=== PATIENT | male | born 1950 | race Caucasian/White ===

== ENCOUNTER → 2016-10-07 | Outpatient (CLI) | payer MEDICARE ==
--- NOTE | 2016-10-07 16:34 | XCELERA REPORT ---
[address] [address] Lower Extremity Venous Evaluation Name: BORIS PRINCE Age: 66 yrs Gender: Male : 1950 Patient Status: Outpatient Patient Location: Study Date: 10/07/2016 03:49 PM Procedure: Color flow and duplex imaging bilaterally of the veins of the lower extremities as well as the Common Femoral veins. Reason For Study: BLE SWELLING Ordering Physician: MARTHA JIMENEZ Performed By: Agus Pabon Right Sided Venous Evaluation Reflux noted at the Popliteal vein. Otherwise normal vessel filling wall to wall, compression and augmentation as well as Colour flow down to the infrageniculate veins. Left Sided Venous Evaluation Normal vessel filling wall to wall, compression and augmentation as well as Colour flow down to the infrageniculate veins. Critical Findings Called [phone] at 1640. Interpretation Summary No duplex evidence of DVT or obstruction in the bilateral lower extremities. Reflux limited to the right Popliteal vein. : MARTHA JIMENEZ > Fuentes Brown
== END ==
LOC: SP 15:34
PROVIDERS: ATTEND Urology
DX: M79.89 Other specified soft tissue disorders (principal)
CPT/HCPCS: 93970

== ENCOUNTER → 2017-04-09 | Outpatient (CLI) | payer MEDICARE ==
--- NOTE | 2017-04-09 12:37 | RADIOLOGY REPORT (SQ) ---
EXAM DESCRIPTION: CT CHEST WITH COMPLETED DATE/TIME: 04/09/2017 9:54 am REASON FOR STUDY: BLADDER CANCER C67.9 MALIGNANT NEOPLASM OF BLADDER, UNSPECIFIED COMPARISON: Two-view chest 05/24/2013 TECHNIQUE: CT scan of the chest performed using helical scanning technique with dynamic intravenous contrast injection. Images reviewed with lung, soft tissue and bone windows. Reconstructed coronal and sagittal MPR images reviewed. All images stored on PACS. All CT scanners at this facility use dose modulation, iterative reconstruction, and/or weight based d osing when appropriate to reduce radiation dose to as low as reasonably achievable (ALARA). [facility]: Dose Right [facility]: CareDose [facility]: Dose Right [facility]: Teradose 4D [facility]: [employer] CONTRAST TYPE AND DOSE: contrast/concentration: Isovue 370.00 mg/ml; Total Contrast Delivered: 73.8 ml; Total Saline Delivered: 20.0 ml RENAL FUNCTION: Creatinine 1.1 RADIATION DOSE: Up-to-date CT equipment and radiation dose reduction techniques were employed. CTDIv ol: 7.6 mGy. DLP: 314 mGy-cm. . LIMITATIONS: None. FINDINGS: LUNGS AND PLEURA: Advanced changes of obstructive lung disease are present in the upper lo bes bilaterally. No worrisome nodules for metastatic disease given history of bladder cancer. No pleural effusion. N o pneumothorax. HILAR AND MEDIASTINAL STRUCTURES: No identified masses or abnormal nodes. HEART AND VASCULAR STRUCTURES: No aneurysm or dissection. No central pulmonary emboli. No pericardi al effusion. Heavy coronary artery calcification. HARDWARE: None in the chest. UPPER ABDOMEN: No significant findings. Limited exam. THYROID AND OTHER SOFT TISSUES: No masses. No adenopathy. BONES: No significant finding. OTHER: No other significant finding. IMPRESSION: Obstructive lung disease. No CT evidence of metastatic disease to the chest given a history of bladder cancer TECHNICAL DOCUMENTATION: JOB ID: [id number] Quality ID # 436: Final reports with documentation of one or more dose reduction techniques (e.g., Au tomated exposure control, adjustment of the mA and/or kV according to patient size, use of iterative reconstruction technique) 2010 [employer]- All Rights Reserved
== END ==
LOC: RAD 08:54
PROVIDERS: ATTEND Internal Medicine
DX: C67.9 Malignant neoplasm of bladder, unspecified (principal); C61 Malignant neoplasm of prostate
CPT/HCPCS: 71260; 82565

== ENCOUNTER → 2017-07-14 | Outpatient (CLI) | payer MEDICARE ==
--- NOTE | 2017-07-14 13:09 | RADIOLOGY REPORT (SQ) ---
EXAM DESCRIPTION: CHEST PA/LAT COMPLETED DATE/TIME: 07/14/2017 1:01 pm REASON FOR STUDY: C67.9 MALIGNANT NEOPLASM OF BLADDER, UNSPECIFIED C61 MALIGNANT NEOPLASM OF COMPARISON: Two-view chest 05/24/2013 CT chest 04/09/2017 EXAM PARAMETERS: NUMBER OF VIEWS: two views TECHNIQUE: Digital Frontal and Lateral radiographic views of the chest acquired. RADIATION DOSE: NA LIMITATIONS: none FINDINGS: LUNGS AND PLEURA: Upper lobes are hyperlucent from obstructive disease. No acute infiltrates. No pleural effusion or pneumothorax. MEDIASTINUM AND HILAR STRUCTURES: No masses or contour abnormalities. HEART AND VASCULAR STRUCTURES: Heart normal size. No evidence for failure. BONES: No acute findings. HARDWARE: Old sternotomy and CABG OTHER: No other significant finding. IMPRESSION: Obstructive lung disease. Old sternotomy and CABG No acute findings TECHNICAL DOCUMENTATION: JOB ID: [id number] [employer]- All Rights Reserved
--- NOTE | 2017-07-14 14:13 | RADIOLOGY REPORT (SQ) ---
EXAM DESCRIPTION: CT ABD/PELVIS WITH IV ONLY COMPLETED DATE/TIME: 07/14/2017 1:20 pm REASON FOR STUDY: C67.9 MALIGNANT NEOPLASM OF BLADDER, UNSPECIFIED C67.9 MALIGNANT NEOPLASM OF BLAD LYNDA, UNSPECIFIED C61 MALIGNANT NEOPLASM OF PROSTATE COMPARISON: Reports from PET-CT [facility] 10/29/[address] abdomen 03/05/2017. TECHNIQUE: CT scan of the abdomen and pelvis performed using helical scanning technique with dynamic intravenous contrast injection. No oral contrast. Images reviewed with lung, soft tissue, and bone windows. Reconstructed coronal and sagittal MPR images reviewed. Delayed images for evaluation of the urinary system also acquired. All images stored on PACS. All CT scanners at this facility use dose modulation, iterative reconstruction, and/or weight based d osing when appropriate to reduce radiation dose to as low as reasonably achievable (ALARA). [facility]: Dose Right [facility]: CareDose [facility]: Dose Right [facility]: Teradose 4D [facility]: [employer] CONTRAST TYPE AND DOSE: contrast/concentration: Isovue 370.00 mg/ml; Total Contrast Delivered: 95.0 ml; Total Saline Delivered: 71.0 ml RENAL FUNCTION: Creatinine 1.3 RADIATION DOSE: CT Rad equipment meets quality standard of care and radiation dose reduction techniq ues were employed. CTDIvol: 9.5 - 11.2 mGy. DLP: 990 mGy-cm.. LIMITATIONS: None. FINDINGS: LOWER CHEST: No basilar pulmonary nodules. Heavy coronary calcification. LIVER: Normal size. No masses. No dilated ducts. SPLEEN: Normal size. No focal lesions. PANCREAS: No masses. No significant calcifications. No adjacent inflammation or peripancreatic fluid collections. Pancreatic duct not dilated. GALLBLADDER: No identified stones by CT criteria. No inflammatory changes to suggest cholecystitis. ADRENAL GLANDS: No significant masses or asymmetry. RIGHT KIDNEY AND URETER: No solid mass or evidence of urinary obstruction. Minimal distention of the ureter, which is patent to the level of a diverting urostomy. LEFT KIDNEY AND URETER: No solid mass or evidence of urinary obstruction. Ureter patent to the level of diverting urostomy. AORTA AND VESSELS: Infrarenal aneurysm measures 4.3 cm transverse dimension. Major arterial branches are patent. No venous clot detected. RETROPERITONEUM: No retroperitoneal adenopathy, hemorrhage or masses. BOWEL AND PERITONEAL CAVITY: No masses or inflammatory changes. No free fluid or peritoneal masses. APPENDIX: Normal. PELVIS: Status post cystectomy. No pelvic fluid or mass detected. No suggestion of pelvic adenopath y. ABDOMINAL WALL: Right abdominal urostomy. No hernia or suspicious mass. BONES: No significant or acute findings. OTHER: No other significant finding. IMPRESSION: 1. No acute or suspicious abdominopelvic abnormality. Postoperative changes status pos t cystectomy with urinary diversion. 2. Infrarenal abdominal aortic aneurysm. Grossly stable compar ed to prior imaging. TECHNICAL DOCUMENTATION: JOB ID: [id number] Quality ID # 436: Final reports with documentation of one or more dose reduction techniques (e.g., Au tomated exposure control, adjustment of the mA and/or kV according to patient size, use of iterative reconstruction technique) 2010 [employer]- All Rights Reserved
== END ==
LOC: RAD 13:22
PROVIDERS: ATTEND Internal Medicine Hematology & Oncology
DX: C67.9 Malignant neoplasm of bladder, unspecified (principal); C61 Malignant neoplasm of prostate
CPT/HCPCS: 71046; 74177; 82565

== ENCOUNTER 2017-11-02 08:48 | Day surgery (SDC) | payer MEDICARE ==
--- NOTE | 2017-10-26 09:59 | EKG REPORT ---
SEVERITY:- OTHERWISE NORMAL ECG - SINUS RHYTHM LOW VOLTAGE IN FRONTAL LEADS : Confirmed by: Toya Harmon 26-Oct-2017 09:58:36
[2017-10-26 10:09] LABS: APPEARANCE,URINE SLIGHTLY-CLOUDY; BILIRUBIN,URINE NEGATIVE (NEGATIVE); COLOR,URINE YELLOW; GLUCOSE, URINE NEGATIVE (NEGATIVE); KETONES,URINE NEGATIVE (NEGATIVE); LEUKOCYTE ESTERASE,URINE SMALL (NEGATIVE); NITRITE,URINE POSITIVE (NEGATIVE); PROTEIN,URINE NEGATIVE (NEGATIVE); URINE SPECIFIC GRAVITY 1.013; UROBILINOGEN,URINE NEGATIVE mg/dL (<2.0)
[2017-10-26 10:25] LABS: ABSOLUTE BASOPHILS # (AUTO) 0.1 10^3/uL (0.0-0.2); ABSOLUTE EOSINOPHILS # (AUTO) 0.2 10^3/uL (0.0-0.6); ABSOLUTE LYMPHOCYTES (AUTO) 1.7 10^3/uL (0.5-4.7); ABSOLUTE MONOCYTES (AUTO) 0.7 10^3/uL (0.1-1.4); ABSOLUTE NEUT (AUTO) 3.9 10^3/uL (1.7-8.2); BASOPHILS % (AUTO) 0.9 % (0-2); EOSINOPHILS % (AUTO) 3.5 % (0-6); HEMATOCRIT 42.7 % (37.9-51.0); HEMOGLOBIN 14.1 g/dL (13.5-17.0); LYMPHOCYTES % (AUTO) 26.3 % (13-45); MEAN CORPUSCULAR HEMOGLOBIN 29.2 pg (27.0-33.4); MEAN CORPUSCULAR VOLUME 89 fl (80-97); MONOCYTES % (AUTO) 10.7 % (3-13); PLATELET COUNT 248 10^3/uL (150-450); RED BLOOD COUNT 4.83 10^6/uL (4.35-5.55); RED CELL DISTRIBUTION WIDTH 13.7 % (11.5-14.0); SEGMENTED NEUTROPHILS % (AUTO) 58.6 % (42-78); TOTAL CELLS COUNTED % (AUTO) 100 %; WHITE BLOOD COUNT 6.6 10^3/uL (4.0-10.5)
[2017-10-26 10:52] LABS: ANION GAP 12 (5-19); BLOOD UREA NITROGEN 21 mg/dL (7-20); CALCIUM 10.5 mg/dL (8.4-10.2); CARBON DIOXIDE 28 mmol/L (22-30); CHLORIDE 108 mmol/L (98-107); GLUCOSE 98 mg/dL (75-110); POTASSIUM 5.5 mmol/L (3.6-5.0)
[~2017-11-02 08:48] MED LIST: ACETAMINOPHEN 100 ML IV ONE; CEFAZOLIN SODIUM 2 GM in NORMAL SALINE 100 ML IV PRN; DEXAMETHASONE SOD PHOSPHATE INJ 4 MG/1 ML VIAL ONE; FENTANYL CITRATE INJ/PF 100 MCG/2 ML AMPUL ONE; LACTATED RINGERS 1000 ML IV PRN; LIDOCAINE 2% INJ-PF (20 MG/ML) 10 ML AMPUL ONE; MIDAZOLAM 2 MG/2 ML INJ ONE; ONDANSETRON HCL INJ/PF 4 MG/2 ML SDV ONE; PROPOFOL INJ 200 MG/20 ML VIAL IV ONE
[2017-11-02] MEDS ORDERED: BUPIVACAINE HCL 0.5 % INJ/PF 30 ML SDV ONE (10:30)
[2017-11-02] MEDS ORDERED: MORPHINE SULFATE 10 MG/ML INJ IV PRN ×2 (12:12→14:06)
[2017-11-02] MEDS ORDERED: FENTANYL CITRATE INJ/PF 100 MCG/2 ML AMPUL IV PRN ×3 (12:12)
[2017-11-02] MEDS ORDERED: MEPERIDINE HCL/PF INJ 25 MG/1 ML DISP.SYRIN IV PRN (12:12)
[2017-11-02] MEDS ORDERED: PROMETHAZINE HCL INJ 25 MG/1 ML VIAL IV PRN ×2 (12:12)
[2017-11-02] MEDS ORDERED: DIPHENHYDRAMINE HCL 50 MG/ML VIAL IV PRN (12:12)
[2017-11-02] MEDS ORDERED: ONDANSETRON HCL INJ/PF 4 MG/2 ML SDV IV PRN ×2 (12:12→14:06)
[2017-11-02] MEDS ORDERED: SUCCINYLCHOLINE CHLORIDE INJ 200 MG/10 ML VIAL ONE (12:45)
--- NOTE | 2017-11-02 13:54 | Operative Report ---
Operative Report DATE OF SURGERY: 11/02/17 PREOPERATIVE DIAGNOSIS: Right SLAC Wrist POSTOPERATIVE DIAGNOSIS: Same OPERATION: Right Scaphoid Excision w/ Mid Carpal Arthrodesis. PIN Neurectomy SURGEON: KING PETERSON 1ST ACCOUNT STRATEGIST: OLIVERIO RICHARDSON - Required for retraction and fixation of the arthrodesis site. ANESTHESIA: GA COMPLICATIONS: None ESTIMATED BLOOD LOSS: Minimal PROCEDURE: Indication for above procedure: 67-year-old male with long-standing history of SLAC wrist we discussed treatment options and attempted conservative management including bracing, injections and anti-inflammatories. Patient failed conservative management at that point decision was made to proceed with operative treatment. Risks and benefits were explained patient verbalized understanding consented for the procedure. Procedure In Detail: Patient was seen and evaluated in the preoperative holding area. The RIGHT upper extremity was initialized and marked. Patient received 2g of Ancef IV for bacterial prophylaxis. Patient was taken back to the operative room where transferred to the operative table and placed under general anesthesia. Once they were adequately anesthetized a nonsterile tourniquet was placed on the upper extremity. A surgical team debriefing was performed ensuring all instrumentation was available, the surgical procedure was discussed with possible concerns reviewed. The upper extremity was prepped with chlorhexidine and alcohol and draped in a sterile fashion. A timeout was done identifying correct patient, procedure and extremity everyone in attendance agree with this and verbalized no concerns. The extremity was exsanguinated the tourniquet was inflated to 250 mmHg. Longitudinal skin incision was made just ulnar to Bhargav's tubercle. Blunt dissection was performed. Any peripheral veins were coagulated with bipolar cautery. Branches the superficial radial nerve were identified and retracted with the radial skin flap. The interval between the fourth and third dorsal compartment was then entered releasing the distal portion of the EPL. The fourth dorsal compartment was elevated to expose the dorsal wrist capsule. The posterior interosseous nerve was identified along the floor of the fourth dorsal compartment and 1 cm was excised. A Haskins type capsulotomy was then made leaving portions of the dorsal radiocarpal and dorsal intercarpal ligaments intact for later closure. This was carefully elevated to expose the carpus. The capitate-lunate articulation demonstrates significant degenerative changes of both the capitate and lunate with [id number] articulation. The radiolunate articulation demonstrated no evidence of degenerative changes. Lastly the radioscaphoid articulation demonstrate advanced degenerative changes with complete cartilage loss. The scaphoid-capitate ligament along with the STT ligaments were released to successfully remove the scaphoid. Once the scaphoid was removed and had good exposure of the capitate articular surface. With a rongeur the capitate articular surface was removed down to good cancellus bone. With traction the lunate articular surface was exposed and debrided down to good cancellus bone to allow for optimal fusion surfaces. With a 0.045 K wire the lunate was reduced restoring the capitolunate angle of 0. I then used a 0.045 K wire from the capitate into the lunate to maintain alignment. C-arm fluoroscopy was obtained confirming acceptable alignment of the capitolunate fusion site. With the [employer] jaya I measured a 13mm width between the capitate and lunate. K wires were placed to determine the optimal position of the staple. C -arm fluoroscopy was obtained confirming appropriate placement. A trough was made between the proximal and distal segments and a 13 mm x 10 mm staple was placed providing excellent compression. I then placed additional 2 K wires radially to confirm appropriate placement of a second stable. Given the with the patient's lunate and capitate it was cheated more on the radial direction. This was then drilled and a 13 x 12 mm staple was placed under direct visualization there was optimal compression with no evidence of cortex cut out. The wound was copiously irrigated with normal saline. On the back table the scaphoid was then denuded to obtain the cancellus bone. This cancellus bone was compressed between any small remaining gaps between the capitate and lunate. There was no evidence of articular impingement with wrist extension. C -arm fluoroscopy confirmed methodist of the capitate lunate angle. The capsule was closed with interrupted 3-0 Vicryl suture. A portion of the retinaculum was reapproximated with 4-0 Monocryl, a Wheaton elevator was placed into the third dorsal compartment to avoid significant compression. Subcutaneous tissues were then closed with interrupted 4-0 Monocryl suture. Skin was closed with a running horizontal mattress 4-0 nylon suture. 20 cc of 0.5% Marcaine with epinephrine was injected for postoperative pain control. Patient was placed in a plaster splint maintaining neutral position. Tourniquet was deflated patient demonstrated good peripheral effusion. Sponge counts, instrument counts, needle counts counts were correct. Patient was then awoken from anesthesia. Transferred from the operating room table to the operating room stretcher. There was no intraoperative complications patient tolerated procedure well stable to PACU. Postoperative plan: Patient will follow-up the office in 2 weeks will obtain radiographs at that time he will be transitioned to a short arm cast which will be continued until union is noted.
[2017-11-02] MEDS ORDERED: OXYCODONE-ACETAMINOPHEN 5-325 MG TABLET PO PRN (14:06)
[2017-11-02] MEDS ORDERED: RINGERS SOLUTION,LACTATED 1,000 ML IV PRN (14:06)
--- NOTE | 2017-11-02 14:06 | Discharge Summary ---
Discharge Summary (SDC) - Discharge Final Diagnosis: Scapholunate advanced collapse right wrist Date of Surgery: 11/02/17 Discharge Date: 11/02/17 Condition: Good Treatment or Instructions: Schedule Follow Up w/ Dr. Shine Lombardi @ [facility] to be seen in 10-14 days or as scheduled [place]: [place]: [place]: Ice and elevate Keep splint clean/dry/intact. If your fingers become numb please unwrap the Reji wrap but leave the splint in place, if the sensation does not return within 30 minutes please return to the emergency department. May begin finger range of motion attempting to make full fist. Please use ibuprofen (Motrin or Advil) 600-800 mg every 8 hours as needed for pain or fever DO NOT TAKE w/ TORADOL may use once TORADOL complete. You may also use acetaminophen (Tylenol) 1000 mg every 4-6 hours as needed for pain or fever. Please be aware that many medications contain acetaminophen, do not exceed a total of 1000 mg of acetaminophen every 6 hours. If ibuprofen and acetaminophen are not sufficient for your pain you may take the Percocet/Chualar. Please be aware that the Percocet/Chualar does contain Tylenol. Stool softener of choice when on pain medication. Prescriptions: Oxycodone HCl/Acetaminophen [Endocet 5-325 Tablet] 1 each PO Q6 #35 tablet Referrals: ADELAIDE RUBALCAVA DO [Primary Care Provider] - Discharge Diet: As Tolerated, Regular Respiratory Treatments at Home: Deep Breathing/Coughing Discharge Activity: No Lifting Over 10 Pounds, No Lifting/Push/Pulling Home Care Assistance: None Needed Report the Following to Your Physician Immediately: Shortness of Breath, Fever over 101 Degrees, Unusual Bleeding, Redness, Swelling, Warmth, Increased Soreness, Drainage-Yellow
[2017-11-02] MEDS: FENTANYL CITRATE INJ/PF 100 MCG/2 ML AMPUL ONE ×2 (14:10→14:15)
--- NOTE | 2017-11-02 15:36 | RADIOLOGY REPORT (SQ) ---
EXAM DESCRIPTION: NO CHG FLUORO; WRIST RIGHT 2 VIEWS COMPLETED DATE/TIME: 11/02/2017 3:25 pm REASON FOR STUDY: ORIF RT WRIST ASST WITH FLUORO IN OR M19.231 SECONDARY OSTEOARTHRITIS, RIGHT WRIS T Z01.818 ENCOUNTER FOR OTHER PREPROCEDURAL EXAMINATION COMPARISON: None. FLUOROSCOPY TIME: 58 seconds 3 images saved to PACS. TECHNIQUE: Intra-operative images acquired during surgical procedure to evaluate progress. NUMBER OF IMAGES: 3 LIMITATIONS: None. FINDINGS: Scaphoid resection. Fusion hardware across the capitate lunate. IMPRESSION: IMAGE(S) OBTAINED DURING PROCEDURE. COMMENT: Quality ID 145: Final reports for procedures using fluoroscopy that document radiation exp osure indices, or exposure time and number of fluorographic images (if radiation exposure indices are not available) Please consult full operative report of the attending physician for description of the procedure. TECHNICAL DOCUMENTATION: JOB ID: [id number] [employer]- All Rights Reserved Reading location - IP/workstation name: [email or web address]
--- NOTE | 2017-11-02 15:36 | RADIOLOGY REPORT (SQ) ---
EXAM DESCRIPTION: NO CHG FLUORO; WRIST RIGHT 2 VIEWS COMPLETED DATE/TIME: 11/02/2017 3:25 pm REASON FOR STUDY: ORIF RT WRIST ASST WITH FLUORO IN OR M19.231 SECONDARY OSTEOARTHRITIS, RIGHT WRIS T Z01.818 ENCOUNTER FOR OTHER PREPROCEDURAL EXAMINATION COMPARISON: None. FLUOROSCOPY TIME: 58 seconds 3 images saved to PACS. TECHNIQUE: Intra-operative images acquired during surgical procedure to evaluate progress. NUMBER OF IMAGES: 3 LIMITATIONS: None. FINDINGS: Scaphoid resection. Fusion hardware across the capitate lunate. IMPRESSION: IMAGE(S) OBTAINED DURING PROCEDURE. COMMENT: Quality ID [id number]: Final reports for procedures using fluoroscopy that document radiation exp osure indices, or exposure time and number of fluorographic images (if radiation exposure indices are not available) Please consult full operative report of the attending physician for description of the procedure. TECHNICAL DOCUMENTATION: JOB ID: [id number] [employer]- All Rights Reserved Reading location - IP/workstation name: [email or web address]
[2017-11-02 16:22] VITALS: BP 121/80
== END 2017-11-02 16:10 | disposition home or self-care (01) ==
LOC: OROUT 08:48
PROVIDERS: ATTEND Orthopaedic Surgery
DX: M19.231 Secondary osteoarthritis, right wrist (principal); E78.00 Pure hypercholesterolemia, unspecified; Z01.818 Encounter for other preprocedural examination; Z79.82 Long term (current) use of aspirin; Z85.46 Personal history of malignant neoplasm of prostate; Z85.51 Personal history of malignant neoplasm of bladder; Z88.5 Allergy status to narcotic agent; Z87.891 Personal history of nicotine dependence
CPT/HCPCS: 93005; 36415 ×2; 84132; 85025; 80048; 81001; 88304 ×2; 88311; 73100; 93010; 64772; 25825; C1769; J2250; J3490 ×2; J0690; J1100; J3010; A9270; J0330; J2405; J2704; J0131; 01830

== ENCOUNTER → 2017-12-31 | Outpatient (CLI) | payer MEDICARE ==
--- NOTE | 2017-12-31 10:23 | RADIOLOGY REPORT (SQ) ---
EXAM DESCRIPTION: CT ABD/PELVIS WITH IV ONLY COMPLETED DATE/TIME: 12/31/2017 9:38 am REASON FOR STUDY: BLADDER CA (C67.9) C67.9 MALIGNANT NEOPLASM OF BLADDER, UNSPECIFIED COMPARISON: PET-CT [facility] 10/29/2017 CT abdomen pelvis 07/14/2017 CT chest 04/09/2017 TECHNIQUE: CT scan of the abdomen and pelvis performed using helical scanning technique with dynamic intravenous contrast injection. No oral contrast. Images reviewed with lung, soft tissue, and bone windows. Reconstructed coronal and sagittal MPR images reviewed. Delayed images for evaluation of the urinary system also acquired. All images stored on PACS. All CT scanners at this facility use dose modulation, iterative reconstruction, and/or weight based d osing when appropriate to reduce radiation dose to as low as reasonably achievable (ALARA). [facility]: Dose Right [facility]: CareDose [facility]: Dose Right [facility]: Teradose 4D [facility]: [employer] CONTRAST TYPE AND DOSE: contrast/concentration: Isovue 370.00 mg/ml; Total Contrast Delivered: 90.0 ml; Total Saline Delivered: 70.0 ml RENAL FUNCTION: Creatinine 1.3 RADIATION DOSE: CT Rad equipment meets quality standard of care and radiation dose reduction techniq ues were employed. CTDIvol: 8.6 - 10.2 mGy. DLP: 1487 mGy-cm.. LIMITATIONS: None. FINDINGS: LOWER CHEST: No significant findings. No nodules or infiltrates. LIVER: Normal size. No masses. No dilated ducts. SPLEEN: Normal size. No focal lesions. PANCREAS: No masses. No significant calcifications. No adjacent inflammation or peripancreatic fluid collections. Pancreatic duct not dilated. GALLBLADDER: No identified stones by CT criteria. No inflammatory changes to suggest cholecystitis. ADRENAL GLANDS: No significant masses or asymmetry. RIGHT KIDNEY AND URETER: No solid masses. No significant calcifications. No significant hydroneph rosis or hydroureter. There is mild prominence of the right ureter and renal pelvis without evidence of significant urinary outflow obstruction. LEFT KIDNEY AND URETER: No solid masses. No significant calcifications. No significant hydronephr osis or hydroureter. There is mild prominence of the left ureter and renal pelvis without evidence o f significant urinary outflow obstruction. AORTA AND VESSELS: Infrarenal abdominal aortic aneurysm 4.8 x 4.2 cm in greatest AP and transverse di ameter. Inferior mesenteric artery is patent on sagittal image 40. Moderate left renal artery ather osclerotic calcification at its origin with greater than 50% proximal stenosis. RETROPERITONEUM: No retroperitoneal adenopathy, hemorrhage or masses. BOWEL AND PERITONEAL CAVITY: No masses or inflammatory changes. No free fluid or peritoneal masses. Anastomotic small bowel jaya are present in the right lower quadrant. APPENDIX: Normal. PELVIS: Post cystectomy and prostatectomy with pelvic lymph node dissection. No free fluid. No mass es. No adenopathy. ABDOMINAL WALL: There is a right lower quadrant urinary conduit. On 10 minutes delayed images, contr ast from the urinary system is seen in the collection bag. BONES: No significant or acute findings. OTHER: No other significant finding. IMPRESSION: No CT evidence of local recurrence or metastatic disease over the abdomen pelvis, given history of bladder cancer TECHNICAL DOCUMENTATION: JOB ID: [id number] Quality ID # 436: Final reports with documentation of one or more dose reduction techniques (e.g., Au tomated exposure control, adjustment of the mA and/or kV according to patient size, use of iterative reconstruction technique) 2010 [employer]- All Rights Reserved Reading location - IP/workstation name: [email or web address]
--- NOTE | 2017-12-31 12:59 | RADIOLOGY REPORT (SQ) ---
EXAM DESCRIPTION: CHEST 2 VIEWS COMPLETED DATE/TIME: 12/31/2017 10:09 am REASON FOR STUDY: BLADDER CA (C67.9), SOB (R06.02) COMPARISON: PA and lateral chest 07/14/2017. CT of the chest 04/09/2017. EXAM PARAMETERS: NUMBER OF VIEWS: two views TECHNIQUE: Digital Frontal and Lateral radiographic views of the chest acquired. RADIATION DOSE: NA LIMITATIONS: none FINDINGS: LUNGS AND PLEURA: No acute infiltrates or effusions. Hyperinflation compatible with COPD. There is paucity of pulmonary vessels in the upper lobes with hyperlucency compatible with known bu llous disease seen on prior CT. MEDIASTINUM AND HILAR STRUCTURES: No masses or contour abnormalities. HEART AND VASCULAR STRUCTURES: The heart is normal. The pulmonary vasculature is normal. BONES: No acute findings. HARDWARE: Changes of CABG. OTHER: No other significant finding. IMPRESSION: Status post CABG. Findings consistent bullous emphysema. TECHNICAL DOCUMENTATION: JOB ID: [id number] SC-69 2010 [employer]- All Rights Reserved Reading location - IP/workstation name: [email or web address]
== END ==
LOC: RAD 08:26
PROVIDERS: ATTEND Internal Medicine Hematology & Oncology
DX: C67.9 Malignant neoplasm of bladder, unspecified (principal); R06.02 Shortness of breath
CPT/HCPCS: 71046; 74177; 82565

== ENCOUNTER 2018-04-12 01:13 | Emergency (ER) | payer MEDICARE ==
[2018-04-12] MEDS ORDERED: ONDANSETRON HCL INJ/PF 4 MG/2 ML SDV IV ONE (02:11)
[2018-04-12] MEDS ORDERED: FENTANYL CITRATE INJ/PF 100 MCG/2 ML AMPUL IV ONE (02:11)
--- NOTE | 2018-04-12 02:15 | ER Document Report ---
ED GI/ <DANA REARDON - Last Filed: 04/12/18 02:28> - General TRAVEL OUTSIDE OF THE [place] IN LAST 30 DAYS: No <NYLA LONDON - Last Filed: 04/12/18 06:57> - General Chief Complaint: Abdominal Pain >50 Stated Complaint: ABDOMINAL PAIN Time Seen by Provider: 04/12/18 02:06 Notes: Patient is a 68-year-old male that comes to the emergency department for chief complaint of sudden onset sharp abdominal pain around midnight tonight, this made him nauseated, he has vomited twice, nonbloody. Pain radiates toward his mid to lower back. He denies fever or chills, dizziness, chest pain, shortness of breath. Past medical history includes abdominal aortic aneurysm which he believes is 4.7 cm in size, history of bladder and prostate cancer with prostatectomy and cystectomy (has urostomy bag). Not on chemo or radiation recently, has been cleared. Not on a blood thinner. (NYLA LONDON) - Related Data Allergies/Adverse Reactions: codeine [Codeine] Allergy (Severe, Verified 06/01/13 19:31) Shortness of Breath PICKLES Allergy (Uncoded 10/21/17 10:30) SEVERE VOMITING Past Medical History - General Information source: Patient - Social History Smoking Status: Never Smoker Frequency of alcohol use: None Drug Abuse: None Lives with: Family Family History: Reviewed & Not Pertinent - Past Medical History Cardiac Medical History: Reports: Hx Coronary Artery Disease Denies: Hx Heart Attack, Hx Hypertension Pulmonary Medical History: Denies: Hx Asthma, Hx Bronchitis, Hx COPD, Hx Pneumonia Neurological Medical History: Denies: Hx Cerebrovascular Accident, Hx Seizures Musculoskeletal Medical History: Denies Hx Arthritis Past Surgical History: Reports: Hx Cardiac Surgery - 3 bypasses, Hx Orthopedic Surgery - right rotator cuff - Immunizations Hx Diphtheria, Pertussis, Tetanus Vaccination: No <NYLA LONDON - Last Filed: 04/12/18 06:57> Review of Systems - Review of Systems Constitutional: No symptoms reported EENT: No symptoms reported Cardiovascular: See HPI Respiratory: No symptoms reported Gastrointestinal: See HPI Genitourinary: See HPI Male Genitourinary: No symptoms reported Musculoskeletal: No symptoms reported Skin: No symptoms reported Hematologic/Lymphatic: No symptoms reported Neurological/Psychological: No symptoms reported <NYLA LONDON - Last Filed: 04/12/18 06:57> Physical Exam <DANA REARDON - Last Filed: 04/12/18 02:28> <NYLA LONDON - Last Filed: 04/12/18 06:57> - Vital signs Vitals: Temp Pulse BP Pulse Ox 97.4 F 46 L 119/62 96 04/12/18 01:19 04/12/18 01:19 04/12/18 01:19 04/12/18 01:19 - Notes Notes: GENERAL: Alert, interacts well. No acute distress. HEAD: Normocephalic, atraumatic. EYES: Pupils equal, round, and reactive to light. Extraocular movements intact. ENT: Oral mucosa moist, tongue midline. NECK: Full range of motion. Supple. Trachea midline. LUNGS: Clear to auscultation bilaterally, no wheezes, rales, or rhonchi. No respiratory distress. HEART: Borderline bradycardia, no murmur ABDOMEN: Generalized abdominal tenderness, nonspecific, no guarding, no rigidity. Urostomy bag present in the right lower abdomen. EXTREMITIES: Moves all 4 extremities spontaneously. No edema, normal radial and dorsalis pedis pulses bilaterally. No cyanosis. BACK: no cervical, thoracic, lumbar midline tenderness. No saddle anesthesia, normal distal neurovascular exam. NEUROLOGICAL: Alert and oriented x3. Normal speech. [cranial nerves II through XII grossly intact]. PSYCH: Normal affect, normal mood. SKIN: Warm, dry, normal turgor. No rashes or lesions noted. (NYLA LONDON) Course - Laboratory Result Diagrams: 04/12/18 02:17 04/12/18 02:17 <DANA REARDON - Last Filed: 04/12/18 02:28> - Laboratory Result Diagrams: 04/12/18 02:17 04/12/18 02:17 <NYLA LONDON - Last Filed: 04/12/18 06:57> - Re-evaluation Re-evalutation: 04/12/18 02:28 I was asked by the physician's assistant to the ceo, Nyla London, to come evaluate patient because he has sudden onset of back pain that then start rating to abdomen. He has a history of a known abdominal aortic aneurysm. Is followed by Dr. Hanna at [facility] in [place]. Patient said he has sudden onset of the pain. He does have nurses are on the rest of his back and then slowly start to radiate around towards the front. Some vomiting. She does have history of bladder cancer and a urostomy. I did do a bedside FAST exam. I see no evidence of free fluid in the abdomen. We will take him straight to CT scan to do a CT Angio of the chest and pelvis to make sure is no evidence of dissection or comp occasion of his aneurysm. Patient's vital signs are currently stable. (DANA REARDON) Patient vomiting on initial evaluation, appears very uncomfortable, abdomen exam is actually quite unremarkable, physical exam unremarkable otherwise. Concerning because of his history of reporting pain in the center of his abdomen going towards his back and history of large aortic aneurysm. Dr. Reardon evaluated the patient at bedside, fast exam was performed, no acute findings. Will perform CTA of the chest/abdomen/pelvis to rule out dissection or other acute etiology. Patient has no history reported of kidney disease. CBC, chemistry generally unremarkable. CTA showing evidence of pyelonephritis/ urinary tract infection, no acute findings with the aorta, incidental findings otherwise. Provided patient and a copy of the report and discussed it. Urinalysis was obtained, indicates infection. Culture placed. Given Rocephin. Discussed with patient, he states he wants something "strong", has had urinary tract infections in the past with treatment failures. No cultures to review in our system. Patient is tolerating p.o., looks very well, states he feels great, is asking to go home. Vital signs unremarkable. After discussion decision was made to place him on Levaquin. Patient ambulating around, smiling and well-appearing. patient has good follow-up, states she will follow-up closely, discussed return precautions in detail. (NYLA LONDON) - Vital Signs Vital signs: Temp Pulse Resp BP Pulse Ox 97.4 F 46 L 12 96/67 L 94 04/12/18 01:19 04/12/18 01:19 04/12/18 06:41 04/12/18 06:41 04/12/18 06:41 - Laboratory Laboratory results interpreted by me: 04/12/18 04/12/18 04/12/18 02:17 02:17 04:00 Hgb 13.2 L RDW 14.8 H Chloride 108 H Creatinine 1.35 H Est GFR (Non-Af Amer) 52 L Glucose 135 H Direct Bilirubin 0.5 H ALT 17 L Urine Protein 100 H Ur Leukocyte Esterase LARGE H Discharge <DANA REARDON - Last Filed: 04/12/18 02:28> <NYLA LONDON - Last Filed: 04/12/18 06:57> - Discharge Clinical Impression: Flank pain Abdominal pain Qualifiers: Abdominal location: generalized Qualified Code(s): R10.84 - Generalized abdominal pain Nausea and vomiting Qualifiers: Vomiting type: unspecified Vomiting Intractability: non-intractable Qualified Code(s): R11.2 - Nausea with vomiting, unspecified Urinary tract infection Qualifiers: Urinary tract infection type: site unspecified Hematuria presence: without hematuria Qualified Code(s): N39.0 - Urinary tract infection, site not specified Condition: Stable Disposition: HOME, SELF-CARE Additional Instructions: Your workup indicates a kidney infection of the right side, you have been started on antibiotics here in for home, please follow-up with your provider within the next 2 days for additional evaluation and management. Return if you worsen including increased pain, vomiting, fever of 100.4 or greater, or any other concerning or worsening symptoms. Prescriptions: Levofloxacin [Levaquin 750 mg Tablet] 750 mg PO DAILY #5 tablet Referrals: NEO LE MD [ACTIVE STAFF] - Follow up as needed
[2018-04-12 02:30] LABS: ABSOLUTE BASOPHILS # (AUTO) 0.1 10^3/uL (0.0-0.2); ABSOLUTE EOSINOPHILS # (AUTO) 0.2 10^3/uL (0.0-0.6); ABSOLUTE LYMPHOCYTES (AUTO) 1.4 10^3/uL (0.5-4.7); ABSOLUTE MONOCYTES (AUTO) 0.9 10^3/uL (0.1-1.4); BASOPHILS % (AUTO) 0.9 % (0-2); EOSINOPHILS % (AUTO) 1.8 % (0-6); HEMATOCRIT 38.6 % (37.9-51.0); HEMOGLOBIN 13.2 g/dL (13.5-17.0); LYMPHOCYTES % (AUTO) 13.6 % (13-45); MEAN CORPUSCULAR HEMOGLOBIN 29.5 pg (27.0-33.4); MEAN CORPUSCULAR HGB CONC 34.3 g/dL (32.0-36.0); MEAN CORPUSCULAR VOLUME 86 fl (80-97); MONOCYTES % (AUTO) 8.2 % (3-13); PLATELET COUNT 222 10^3/uL (150-450); RED BLOOD COUNT 4.48 10^6/uL (4.35-5.55); RED CELL DISTRIBUTION WIDTH 14.8 % (11.5-14.0); SEGMENTED NEUTROPHILS % (AUTO) 75.5 % (42-78); TOTAL CELLS COUNTED % (AUTO) 100 %; WHITE BLOOD COUNT 10.5 10^3/uL (4.0-10.5)
[2018-04-12 02:52] LABS: ALANINE AMINOTRANSFERASE 17 U/L (21-72); ALBUMIN 4.2 g/dL (3.5-5.0); ALKALINE PHOSPHATASE 60 U/L (38-126); ANION GAP 7 (5-19); ASPARTATE AMINO TRANSFERASE 27 U/L (17-59); BILIRUBIN,DIRECT 0.5 mg/dL (0.0-0.4); BILIRUBIN,TOTAL 0.5 mg/dL (0.2-1.3); BLOOD UREA NITROGEN 18 mg/dL (7-20); CALCIUM 9.6 mg/dL (8.4-10.2); CARBON DIOXIDE 28 mmol/L (22-30); CHLORIDE 108 mmol/L (98-107); GLUCOSE 135 mg/dL (75-110); LIPASE 171.9 U/L (23-300); POTASSIUM 4.2 mmol/L (3.6-5.0); SODIUM 142.9 mmol/L (137-145); TOTAL PROTEIN 7.5 g/dL (6.3-8.2)
--- NOTE | 2018-04-12 03:42 | RADIOLOGY REPORT (SQ) ---
CLINICAL DATA: 68-year-old male with sharp abdominal pain radiating to the back. TECHNICAL DATA: Following the administration of intravenous contrast, multiple high-resolution axial images of the abdomen and pelvis were performed prior to and following the administration of intravenous contrast followed by sagittal and coronal reconstructed images and oblique MIP images. High resolution contrast enhanced CT images of the chest were performed also followed by sagittal and coronal reconstructed images and oblique MIP images. The CT study is performed according to ALARA (as low as reasonably achievable) or ALARA/IMAGE GENTLY, with automatic adjustment of mA and/or kV according to patient size. COMPARISONS: Prior CT chest performed on 04/09/[address] abdomen and pelvis performed on 12/31/2017. FINDINGS: CTA CHEST: There is satisfactory visualization and contrast opacification of pulmonary arteries. No definite intra-arterial filling defects are identified to suggest acute or chronic pulmonary embolism. The thoracic aorta is normal in caliber and contour without evidence of aneurysm or dissection. Incidentally noted is a persistent left-sided superior vena cava. A right-sided superior vena cava is also present. The lungs are well expanded and again demonstrate findings compatible bullous emphysema with greatest involvement of the upper lobes. There is parenchymal scarring and/or atelectasis in the dependent lung bases. No dense airspace consolidation is identified. There is a stable pleural-based nodule in the right middle lobe measuring approximately 3 mm. The heart is normal in size. There is no pericardial effusion. There is no evidence of hilar, mediastinal or axillary lymphadenopathy. No acute osseous abnormality is identified. There are postsurgical changes of the mediastinum. There are mild degenerative changes along the thoracic spine. The visualized upper abdominal structures are unremarkable. CTA ABDOMEN AND PELVIS: Liver:The liver is normal in size and configuration. No focal hepatic abnormalities are identified. Liver attenuation is within normal limits. Spleen:The spleen is normal is size, configuration and attenuation. Gallbladder and bile duct: The gallbladder is well distended and unremarkable. There is no biliary ductal dilatation. Pancreas: The pancreas is grossly normal in size and configuration. Adrenal Glands:The adrenal glands are normal in size and configuration. Kidneys:The kidneys are normal in size and configuration. There is moderate to marked right-sided hydronephrosis and hydroureter with periureteral inflammation. Again demonstrated are bilateral ureteroileostomies following bladder resection for bladder cancer. There is no evidence of nephrolithiasis. No definite solid or cystic renal mass lesions are identified. Stomach:The stomach is grossly normal. There is no definite hiatal hernia. Bowel:The bowel gas pattern is non specific and non obstructive. Anastomotic small bowel jaya are seen in the right lower quadrant. Appendix: The appendix is normal. Free air:There is no evidence of free air. Free fluid: There is no evidence of free fluid. Vasculature: Again demonstrated is an infrarenal abdominal aortic aneurysm measuring approximately 4.8 x 4.2 cm in cross-sectional diameter by approximately 4.8 cm in craniocaudal dimension. There are atherosclerotic calcifications along the aorta and major branch vessels. The aneurysm does not involve the iliac arteries. The aneurysm measures approximately 4.8 x 4.2 cm on the prior study. The celiac artery and superior mesenteric artery are widely patent. There are atherosclerotic calcifications at the origins of these vessels without significant stenosis. The inferior mesenteric artery is patent. There are mild to moderate atherosclerotic calcifications at the origins of the renal arteries bilaterally greater on the left. There is no significant renal artery stenosis. There are atherosclerotic calcifications along the iliac arteries and femoral arteries bilaterally without significant stenosis. The inferior vena cava is grossly unremarkable. Lymphadenopathy: No pathologic lymphadenopathy is identified. There has been prior pelvic lymph node dissection. Bladder: The bladder is surgically absent. A ureteral ileostomy is noted in the right lower quadrant. Reproductive: The prostate gland is surgically absent. Bones: There are degenerative changes of the lumbar spine. There are vacuum discs at L4-L5 and L5-S1. Soft tissues: No focal soft tissue abnormalities are identified. IMPRESSION: 1. No CT evidence to suggest acute or chronic pulmonary embolism, aortic aneurysm or aortic dissection. Incidentally noted is a persistent left superior vena cava. 2. Bullous emphysema predominantly involving the upper lobes with chronic scarring or atelectasis in the dependent lungs. 3. Grossly stable infrarenal abdominal aortic aneurysm measuring approximate 4.8 x 4.2 cm in cross-sectional diameter. Follow-up imaging at six-month intervals and vascular consultation recommended. 4. Bilateral ureteroileostomy status post cystectomy and prostatectomy. There is new moderate to marked right-sided hydronephrosis and hydroureter with periureteral inflammation. 5. Atherosclerotic calcifications along the major aortic branch vessels without significant stenosis or occlusion.
[2018-04-12] MEDS ORDERED: CEFTRIAXONE INJ 1000 MG VIAL IV ONE (03:59)
[2018-04-12 05:30] LABS: APPEARANCE,URINE CLOUDY; BILIRUBIN,URINE NEGATIVE (NEGATIVE); COLOR,URINE YELLOW; GLUCOSE, URINE NEGATIVE (NEGATIVE); KETONES,URINE NEGATIVE (NEGATIVE); LEUKOCYTE ESTERASE,URINE LARGE (NEGATIVE); NITRITE,URINE NEGATIVE (NEGATIVE); PROTEIN,URINE 100 mg/dL (NEGATIVE); URINE SPECIFIC GRAVITY 1.018; UROBILINOGEN,URINE NEGATIVE mg/dL (<2.0)
[2018-04-12] MEDS ORDERED: HYDROCODONE/ACETAMINOPHEN 5-325 MG (6 TAB/ER DISP) PO PRN (05:48)
[2018-04-12] MEDS ORDERED: ONDANSETRON ODT 4 MG TAB (6 TAB/ER DISP) PO PRN (05:48)
[2018-04-12 06:50] VITALS: BP 96/67
--- NOTE | 2018-04-12 12:27 | EKG REPORT ---
SEVERITY:- ABNORMAL ECG - SINUS RHYTHM FIRST DEGREE AV BLOCK LOW VOLTAGE THROUGHOUT : Confirmed by: Toya Harmon 12-Apr-2018 12:25:27
== END 2018-04-12 06:50 | disposition home or self-care (01) ==
LOC: ER 01:13
DX: R10.84 Generalized abdominal pain (principal); R11.2 Nausea with vomiting, unspecified; N39.0 Urinary tract infection, site not specified; Z88.6 Allergy status to analgesic agent; Z95.1 Presence of aortocoronary bypass graft; Z85.46 Personal history of malignant neoplasm of prostate; Z85.51 Personal history of malignant neoplasm of bladder
CPT/HCPCS: 99284; 96375; 96365; 36415; 87086; 83690; 85025; 87088; 80053; 81001; 87186; 83605; 71275; 74174; 93005; 93010; J3010; J0696; J2405; A9270 ×2

== ENCOUNTER 2018-04-12 13:57 | Emergency (ER) | payer MEDICARE ==
[2018-04-12 14:09] VITALS: BP 102/61
--- NOTE | 2018-04-12 14:34 | ER Document Report ---
ED Medical Screen (RME) - General Chief Complaint: Fever Stated Complaint: FEVER Time Seen by Provider: 04/12/18 14:25 Mode of Arrival: Ambulatory Information source: Patient, Relative, [facility] Records Notes: 68-year-old male presents for the second time in 12 hours with reports of a fever of 100.7 at home. Patient was evaluated yesterday and diagnosed with a urinary tract infection, pyelonephritis. Patient was placed on Levaquin and took his first dose just prior to arrival. Patient reports improvement in his pain, nausea and vomiting. Upon arrival patient is afebrile here without taking any Tylenol or Motrin. He states that he was told to return for possible admission. Patient had labs and imaging less than 12 hours ago. CTA of the chest and abdomen were obtained and negative for PE, aortic dissection. TRAVEL OUTSIDE OF THE [place] IN LAST 30 DAYS: No - HPI Onset: Other Quality of pain: Dull Severity: Mild Pain Level: 2 Associated Symptoms: Fever. denies: Nausea, Vomiting Exacerbated by: Denies Relieved by: Denies Similar symptoms previously: Yes Recently seen / treated by doctor: Yes - 04/12/18 - Related Data Smoking: Non-smoker Frequency of alcohol use: None Drug Abuse: None Allergies/Adverse Reactions: codeine [Codeine] Allergy (Severe, Verified 04/12/18 14:30) Shortness of Breath PICKLES Allergy (Uncoded 04/12/18 14:30) SEVERE VOMITING Past Medical History - Social History Chew tobacco use (# tins/day): No Frequency of alcohol use: None Drug Abuse: None - Past Medical History Cardiac Medical History: Reports: Hx Coronary Artery Disease Denies: Hx Heart Attack, Hx Hypertension Pulmonary Medical History: Denies: Hx Asthma, Hx Bronchitis, Hx COPD, Hx Pneumonia Neurological Medical History: Denies: Hx Cerebrovascular Accident, Hx Seizures Renal/ Medical History: Denies: Hx Peritoneal Dialysis Musculoskeltal Medical History: Denies Hx Arthritis Past Surgical History: Reports: Hx Cardiac Surgery - 3 bypasses, Hx Orthopedic Surgery - right rotator cuff - Immunizations Hx Diphtheria, Pertussis, Tetanus Vaccination: No Physical Exam - Vital signs Vitals: Temp Pulse Resp BP Pulse Ox 98.7 F 93 20 102/61 96 04/12/18 14:07 04/12/18 14:07 04/12/18 14:07 04/12/18 14:07 04/12/18 14:07 Course - Vital Signs Vital signs: Temp Pulse Resp BP Pulse Ox 98.7 F 93 20 102/61 96 04/12/18 14:07 04/12/18 14:07 04/12/18 14:07 04/12/18 14:07 04/12/18 14:07
== END 2018-04-12 15:35 | disposition left against medical advice (07) ==
LOC: ER 13:57
DX: R50.9 Fever, unspecified (principal); N39.0 Urinary tract infection, site not specified; Z88.6 Allergy status to analgesic agent; Z95.1 Presence of aortocoronary bypass graft
CPT/HCPCS: 99281

== ENCOUNTER → 2018-10-24 | Outpatient (CLI) | payer MEDICARE ==
--- NOTE | 2018-10-24 11:41 | RADIOLOGY REPORT (SQ) ---
EXAM DESCRIPTION: CHEST 2 VIEWS COMPLETED DATE/TIME: 10/24/2018 11:20 am REASON FOR STUDY: MALIGNANT NEOPLASM OF BLADDER, UNSPECIFIED (C67.9) COMPARISON: 12/31/2017 EXAM PARAMETERS: NUMBER OF VIEWS: two views TECHNIQUE: Digital Frontal and Lateral radiographic views of the chest acquired. RADIATION DOSE: NA LIMITATIONS: none FINDINGS: LUNGS AND PLEURA: Emphysematous changes in the lungs with stable appearing overlie in the upper lobes-apices. No acute pulmonary consolidation. No pneumothorax or pleural effusion. MEDIASTINUM AND HILAR STRUCTURES: No masses or contour abnormalities. HEART AND VASCULAR STRUCTURES: Heart normal size. No evidence for failure. BONES: No acute findings. HARDWARE: Prior anterior median sternotomy and CABG. Partially visualized endovascular stent graft on the film's edge. OTHER: No other significant finding. IMPRESSION: 1. No significant interval changes since the prior study dated 12/31/2017. Findings of emphysema. No acute findings. TECHNICAL DOCUMENTATION: JOB ID: [id number] [email or web address]- All Rights Reserved Reading location - IP/workstation name: [email or web address]
== END ==
LOC: RAD 11:00
PROVIDERS: ATTEND Internal Medicine Hematology & Oncology
DX: C67.9 Malignant neoplasm of bladder, unspecified (principal)
CPT/HCPCS: 71046

== ENCOUNTER 2019-02-16 11:37 | Emergency (ER) | payer MEDICARE ==
--- NOTE | 2019-02-16 12:14 | ER Document Report ---
ED Medical Screen (RME) - General Chief Complaint: Abdominal Pain Stated Complaint: ABDOMINAL PAIN Time Seen by Provider: 02/16/19 12:10 Primary Care Provider: NEO LE MD [Primary Care Provider] - Follow up as needed Mode of Arrival: Wheelchair Information source: Patient Notes: 69-year-old male presented to ED for complaint of abdominal pain with nausea and vomiting since 2 AM. He has vomited between 4 and 8 times since 2 AM. He states he is vomited up everything he ate for breakfast and dinner last night. He states he has stage IV bladder and prostate cancer and has a urostomy. He states he also had a AAA that was repaired in May. He is alert oriented respirations regular and unlabored speaking in full sentences. He has been ordered blood work urine Zofran and IV fluids. I have also ordered a CAT scan as long as his chemistries are okay. I have greeted and performed a rapid initial assessment of this patient. A comprehensive ED assessment and evaluation of the patient, analysis of test results and completion of medical decision making process will be conducted by an additional ED providers. Dictation of this chart was performed using voice recognition software; therefore, there may be some unintended grammatical errors. TRAVEL OUTSIDE OF THE [place] IN LAST 30 DAYS: No - Related Data Allergies/Adverse Reactions: codeine [Codeine] Allergy (Severe, Verified 02/16/19 11:38) Shortness of Breath PICKLES Allergy (Uncoded 02/16/19 11:38) SEVERE VOMITING Past Medical History - Past Medical History Cardiac Medical History: Reports: Hx Coronary Artery Disease Denies: Hx Heart Attack, Hx Hypertension Pulmonary Medical History: Denies: Hx Asthma, Hx Bronchitis, Hx COPD, Hx Pneumonia Neurological Medical History: Denies: Hx Cerebrovascular Accident, Hx Seizures Renal/ Medical History: Denies: Hx Peritoneal Dialysis Musculoskeltal Medical History: Denies Hx Arthritis Past Surgical History: Reports: Hx Cardiac Surgery - 3 bypasses, Hx Orthopedic Surgery - right rotator cuff - Immunizations Hx Diphtheria, Pertussis, Tetanus Vaccination: No Physical Exam - Vital signs Vitals: Temp Pulse Resp BP Pulse Ox 97.5 F 55 L 16 117/68 93 02/16/19 11:41 02/16/19 11:41 02/16/19 11:41 02/16/19 11:41 02/16/19 11:41 Course - Vital Signs Vital signs: Temp Pulse Resp BP Pulse Ox 97.5 F 55 L 16 117/68 93 02/16/19 11:41 02/16/19 11:41 02/16/19 11:41 02/16/19 11:41 02/16/19 11:41 Doctor's Discharge - Discharge Referrals: NEO LE MD [Primary Care Provider] - Follow up as needed
[2019-02-16 12:43] LABS: HEMATOCRIT 43.6 % (37.9-51.0); HEMOGLOBIN 14.4 g/dL (13.5-17.0); MEAN CORPUSCULAR HEMOGLOBIN 28.7 pg (27.0-33.4); MEAN CORPUSCULAR VOLUME 87 fl (80-97); PLATELET COUNT 230 10^3/uL (150-450); RED BLOOD COUNT 5.01 10^6/uL (4.35-5.55); RED CELL DISTRIBUTION WIDTH 14.6 % (11.5-14.0); WHITE BLOOD COUNT 14.9 10^3/uL (4.0-10.5)
[2019-02-16 13:05] LABS: ALBUMIN 4.5 g/dL (3.5-5.0); ALKALINE PHOSPHATASE 88 U/L (38-126); ANION GAP 11 (5-19); ASPARTATE AMINO TRANSFERASE 33 U/L (17-59); BILIRUBIN,DIRECT 0.2 mg/dL (0.0-0.4); BILIRUBIN,TOTAL 0.5 mg/dL (0.2-1.3); BLOOD UREA NITROGEN 23 mg/dL (7-20); CALCIUM 9.9 mg/dL (8.4-10.2); CARBON DIOXIDE 27 mmol/L (22-30); CHLORIDE 104 mmol/L (98-107); CREATINE KINASE 237 U/L (55-170); GLUCOSE 127 mg/dL (75-110); POTASSIUM 4.4 mmol/L (3.6-5.0); TOTAL PROTEIN 7.4 g/dL (6.3-8.2)
[2019-02-16 13:09] LABS: ABSOLUTE LYMPHOCYTES# (MANUAL) 0.7 10^3/uL (0.5-4.7); ABSOLUTE MONOCYTES # (MANUAL) 0.9 10^3/uL (0.1-1.4); BASOPHILS % (MANUAL) 0 % (0-2); EOSINOPHILS % (MANUAL) 0 % (0-6); LYMPHOCYTES % (MANUAL) 5 % (13-45); MONOCYTES % (MANUAL) 6 % (3-13); SEGMENTED NEUTROPHILS % (MAN) 89 % (42-78); TOTAL CELLS COUNTED 100
[2019-02-16 13:11] LABS: ANISOCYTOSIS SLIGHT; PLATELET COMMENT ADEQUATE; TOXIC GRANULATION SLIGHT
[2019-02-16] MEDS ORDERED: ONDANSETRON HCL INJ/PF 4 MG/2 ML SDV IV ONE (13:13)
[2019-02-16] MEDS ORDERED: NORMAL SALINE 1000 ML 1,000 ML IV ONE (13:13)
[2019-02-16] MEDS ORDERED: HYDROMORPHONE HCL INJ/PF 2 MG/ML AMPULE IV ONE (13:14)
--- NOTE | 2019-02-16 13:16 | ER Document Report ---
ED General - General Chief Complaint: Abdominal Pain Stated Complaint: ABDOMINAL PAIN Time Seen by Provider: 02/16/19 12:10 Primary Care Provider: KHUSHI ROSARIO PA-C [Primary Care Provider] - Follow up as needed Mode of Arrival: Wheelchair Notes: Patient is a 69-year-old male with history of prostate cancer status post ileal conduit that presents to the emergency department for chief complaint of abdominal pain, nausea and vomiting. Patient states he has had pain just above his ileal conduit, that started early this morning, got progressively worse, with associated nausea and multiple episodes of vomiting to the point he decided come to the emergency department. The pain wraps around towards the right side and right back as well. He is never had pain like this in the past. He had his surgery 2 years ago, for prostate cancer, and has been in remission since then. He also has a history of abdominal aortic aneurysm, that was repaired, with stenting. He denies noting any blood in the urine back, but states it was decreased over the past 24 hours. He currently rates his pain as a 6 out of 10 describes it as a sharp and stabbing sensation in the right side of the abdomen mainly upper, radiating towards the right flank. Past Medical History: History of prostate cancer, AAA, CAD, hyperlipidemia Past Surgical History: Ileal conduit, prostatectomy Social History: Denies current tobacco, alcohol or illicit drug use. Remote history of smoking. Family History: Reviewed and noncontributory for presenting illness Allergies: Reviewed, see documented allergy list. REVIEW OF SYSTEMS: Other than noted above, the 12 point review of systems was reviewed with the patient and were negative, all pertinent findings are included in the HPI. PHYSICAL EXAMINATION: Vital signs reviewed, nursing noted reviewed. GENERAL: Elderly male, appears uncomfortable on exam. HEAD: Atraumatic, normocephalic. EYES: Eyes appear normal, extraocular movements intact, sclera anicteric, c onjunctiva are normal. ENT: nares patent, oropharynx clear without exudates. Moist mucous membranes. NECK: Normal range of motion, supple without lymphadenopathy LUNGS: Breath sounds clear to auscultation bilaterally and equal. No wheezes rales or rhonchi. HEART: Regular rate and rhythm without murmurs ABDOMEN: Soft, right CVA tenderness, and right upper quadrant tenderness to palpation, normoactive bowel sounds. No rebound, guarding, or rigidity. No masses appreciated. There is a ostomy bag in the right lower quadrant, with cloudy yellow urine, no gross hematuria noted. EXTREMITIES: Nontender, good range of motion, no pitting or edema. NEUROLOGICAL: No focal neurological deficits. Moves all extremities spontaneously Motor and sensory grossly intact on exam. PSYCH: Normal mood, normal affect. SKIN: Warm, Dry, normal turgor, no rashes or lesions noted on exposed skin TRAVEL OUTSIDE OF THE [place] IN LAST 30 DAYS: No - Related Data Allergies/Adverse Reactions: codeine [Codeine] Allergy (Severe, Verified 02/16/19 11:38) Shortness of Breath PICKLES Allergy (Uncoded 02/16/19 11:38) SEVERE VOMITING Past Medical History - General Information source: Patient - Social History Smoking Status: Never Smoker Family History: Reviewed & Not Pertinent Patient has suicidal ideation: No Patient has homicidal ideation: No - Past Medical History Cardiac Medical History: Reports: Hx Coronary Artery Disease Denies: Hx Heart Attack, Hx Hypertension Pulmonary Medical History: Denies: Hx Asthma, Hx Bronchitis, Hx COPD, Hx Pneumonia Neurological Medical History: Denies: Hx Cerebrovascular Accident, Hx Seizures Renal/ Medical History: Denies: Hx Peritoneal Dialysis Musculoskeletal Medical History: Denies Hx Arthritis Past Surgical History: Reports: Hx Cardiac Surgery - 3 bypasses, Hx Orthopedic Surgery - right rotator cuff - Immunizations Hx Diphtheria, Pertussis, Tetanus Vaccination: No Physical Exam - Vital signs Vitals: Temp Pulse Resp BP Pulse Ox 97.5 F 55 L 16 117/68 93 02/16/19 11:41 02/16/19 11:41 02/16/19 11:41 02/16/19 11:41 02/16/19 11:41 Course - Re-evaluation Re-evalutation: Patient seen and examined vital signs reviewed. Laboratory data and/or imaging were ordered as appropriate for the patient's presenting symptoms and complaint, with consideration of any critical or life threatening conditions that may be associated with their obtained history and exam as noted above. Patient was treated with IV fluids, Zofran and Dilaudid Results were reviewed when available and demonstrated leukocytosis, urine looked like was positive for nitrates and bacteria, CT imaging demonstrated what looked like a stone in the patient's ileal conduit, with severe right hydronephrosis, I discussed these findings with the patient's urologist that performed the surgery, Dr. Morley in [place], he did not have further recommendations, other than to have him follow-up in the office in the next several days. I will treat him with Keflex, for 7 days, to cover for infection, he is also given Zofran, and oxycodone to take at home if he has continued pain. This seems most likely hydronephrosis, from a passed ureteral stone, that now appears to be in the patient's ileal conduit. The patient was re-evaluated and was stable Results were discussed with the patient at this point, after careful consideration I feel that that patient can be discharged from the emergency department, the patient was educated treatments and reasons to return to the emergency department based on their presumed diagnosis as noted above, they were advised to followup with a primary care physician in 2-3 days. Patient was agreeable to plan of care. *Note is created using voice recognition software and may contain spelling, syntax or grammatical errors. Laboratory 02/16/19 02/16/19 02/16/19 12:24 12:24 15:30 WBC 14.9 H RBC 5.01 Hgb 14.4 Hct 43.6 MCV 87 MCH 28.7 MCHC 33.0 RDW 14.6 H Plt Count 230 Total Counted 100 Seg Neutrophils % Not Reportable Seg Neuts % (Manual) 89 H Lymphocytes % Not Reportable Lymphocytes % (Manual) 5 L Monocytes % Not Reportable Monocytes % (Manual) 6 Eosinophils % Not Reportable Eosinophils % (Manual) 0 Basophils % Not Reportable Basophils % (Manual) 0 Absolute Neutrophils Not Reportable Abs Neuts (Manual) 13.3 H Absolute Lymphocytes Not Reportable Abs Lymphs (Manual) 0.7 Absolute Monocytes Not Reportable Abs Monocytes (Manual) 0.9 Absolute Eosinophils Not Reportable Absolute Eos (Manual) 0.0 Absolute Basophils Not Reportable Abs Basophils (Manual) 0.0 Toxic Granulation SLIGHT Platelet Comment ADEQUATE Anisocytosis SLIGHT Sodium 141.6 Potassium 4.4 Chloride 104 Carbon Dioxide 27 Anion Gap 11 BUN 23 H Creatinine 1.59 H Est GFR ( Amer) 52 L Est GFR (Non-Af Amer) 43 L Glucose 127 H Calcium 9.9 Total Bilirubin 0.5 Direct Bilirubin 0.2 Neonat Total Bilirubin Not Reportable Neonat Direct Bilirubin Not Reportable Neonat Indirect Bili Not Reportable AST 33 ALT 27 Alkaline Phosphatase 88 Creatine Kinase 237 H Total Protein 7.4 Albumin 4.5 Lipase 195.2 Urine Color YELLOW Urine Appearance TURBID Urine pH 8.0 Ur Specific [place] 1.021 Urine Protein 100 H Urine Glucose (UA) NEGATIVE Urine Ketones TRACE H Urine Blood SMALL H Urine Nitrite POSITIVE H Urine Bilirubin NEGATIVE Urine Urobilinogen NEGATIVE Ur Leukocyte Esterase MODERATE H Urine WBC 50-100 Amorphous Sediment 1+ Urine Bacteria 2+ Urine Ascorbic Acid NEGATIVE Abdomen/Pelvis CT 02/16/19 12:11 IMPRESSION: 1. Severe right hydronephrosis and hydroureter status post cystoprostatectomy and right lower quadrant ileal conduit urinary diversion. There is a 5 mm calcific density which appears to be within the dependent portion of the ileal conduit and does not appear to be near the right ureteral anastomosis. Obstruction may be related to stricture or recently passed calculus. 2. No left-sided hydronephrosis. 3. Redemonstrated infrarenal abdominal aortic aneurysm status post aortobiiliac stent endograft repair. - Vital Signs Vital signs: Temp Pulse Resp BP Pulse Ox 98.2 F 77 16 110/66 93 02/16/19 17:00 02/16/19 17:00 02/16/19 11:41 02/16/19 17:00 02/16/19 17:00 - Laboratory Result Diagrams: 02/16/19 12:24 02/16/19 12:24 Laboratory results interpreted by me: 02/16/19 02/16/19 02/16/19 12:24 12:24 15:30 WBC 14.9 H RDW 14.6 H Seg Neuts % (Manual) 89 H Lymphocytes % (Manual) 5 L Abs Neuts (Manual) 13.3 H BUN 23 H Creatinine 1.59 H Est GFR ( Amer) 52 L Est GFR (Non-Af Amer) 43 L Glucose 127 H Creatine Kinase 237 H Urine Protein 100 H Urine Ketones TRACE H Urine Blood SMALL H Urine Nitrite POSITIVE H Ur Leukocyte Esterase MODERATE H Discharge - Discharge Clinical Impression: Kidney stone UTI (urinary tract infection) Qualifiers: Urinary tract infection type: site unspecified Hematuria presence: with hematuria Qualified Code(s): N39.0 - Urinary tract infection, site not specified; R31.9 - Hematuria, unspecified Abdominal pain Qualifiers: Abdominal location: right upper quadrant Qualified Code(s): R10.11 - Right upper quadrant pain Leukocytosis Qualifiers: Leukocytosis type: unspecified Qualified Code(s): D72.829 - Elevated white blood cell count, unspecified Condition: Stable Disposition: HOME, SELF-CARE Instructions: Kidney Stone ([facility]), Urinary Tract Infection ([facility]) Additional Instructions: Please follow up with Dr. Morley in his new office, [facility], the new phone number is [phone], call for an appointment, he would like to see you within the next few days early next week. Please complete the entire course of antibiotics as prescribed, and take the nausea medicine and pain medication as needed at home. If your symptoms worsen or do not improve, do not hesitate to return to the emergency department. There is another phone number for Dr. Morley is the above number does not work. it is [phone] Prescriptions: RX: Cephalexin Monohydrate [Keflex 500 mg Capsule] 500 mg PO TID 7 Days #21 capsule Ondansetron [Zofran Odt 4 mg Tablet] 1 tab PO Q8H PRN #15 tab.rapdis PRN Reason: For Nausea/Vomiting Oxycodone HCl [Oxy-Ir 5 mg Tablet] 5 mg PO Q8H PRN #10 tab PRN Reason: abdominal pain Referrals: KHUSHI ROSARIO PA-C [Primary Care Provider] - Follow up as needed
--- NOTE | 2019-02-16 14:43 | RADIOLOGY REPORT (SQ) ---
EXAM DESCRIPTION: CT ABD/PELVIS WITH IV ONLY COMPLETED DATE/TIME: 02/16/2019 2:24 pm REASON FOR STUDY: abd pain nv ileostomy bladder prostate cancer COMPARISON: 12/31/2017 TECHNIQUE: CT scan of the abdomen and pelvis performed using helical scanning technique with dynamic intravenous contrast injection. No oral contrast. Images reviewed with lung, soft tissue, and bone windows. Reconstructed coronal and sagittal MPR images reviewed. Delayed images for evaluation of the urinary system also acquired. All images stored on PACS. All CT scanners at this facility use dose modulation, iterative reconstruction, and/or weight based d osing when appropriate to reduce radiation dose to as low as reasonably achievable (ALARA). [facility]: Dose Right [facility]: CareDose [facility]: Dose Right [facility]: Teradose 4D [facility]: Clavister CONTRAST TYPE AND DOSE: contrast/concentration: Isovue 300.00 mg/ml; Total Contrast Delivered: 99.0 ml; Total Saline Delivered: 56.0 ml RENAL FUNCTION: GFR = 43 RADIATION DOSE: CT Rad equipment meets quality standard of care and radiation dose reduction techniq ues were employed. CTDIvol: 9.6 - 13.3 mGy. DLP: 1293 mGy-cm.. LIMITATIONS: None. FINDINGS: LOWER CHEST: No significant findings. No nodules or infiltrates. LIVER: Normal size. No masses. No dilated ducts. SPLEEN: Normal size. No focal lesions. PANCREAS: No masses. No significant calcifications. No adjacent inflammation or peripancreatic fluid collections. Pancreatic duct not dilated. GALLBLADDER: No identified stones by CT criteria. No inflammatory changes to suggest cholecystitis. ADRENAL GLANDS: No significant masses or asymmetry. RIGHT KIDNEY AND URETER: No solid masses. No significant calcifications. Severe right hydronephro sis and hydroureter. Postoperative findings of right lower quadrant ileal conduit. LEFT KIDNEY AND URETER: No solid masses. No significant calcifications. No hydronephrosis or hydr oureter. AORTA AND VESSELS: Redemonstrated infrarenal abdominal aortic aneurysm status post aortobiiliac stent endograft repair. RETROPERITONEUM: No retroperitoneal adenopathy, hemorrhage or masses. BOWEL AND PERITONEAL CAVITY: No masses or inflammatory changes. No free fluid or peritoneal masses. APPENDIX: Normal. PELVIS: No mass. No free fluid. Status post cystoprostatectomy and ileal conduit urinary diversion. There is a 5 mm calcific density which appears to be within the dependent portion of the ileal cond uit and does not appear to be near the right ureteral anastomosis (series 3, image 68). ABDOMINAL WALL: No masses. No hernias. BONES: No significant or acute findings. OTHER: No other significant finding. IMPRESSION: 1. Severe right hydronephrosis and hydroureter status post cystoprostatectomy and right lower quadrant ileal conduit urinary diversion. There is a 5 mm calcific density which appears to be within the dependent portion of the ileal conduit and does not appear to be near the right ureteral anastomosis. Obstruction may be related to stricture or recently passed calculus. 2. No left-sided hydronephrosis. 3. Redemonstrated infrarenal abdominal aortic aneurysm status post aortobiiliac stent endograft donato francisco TECHNICAL DOCUMENTATION: JOB ID: [id number] Quality ID # [id number]: Final reports with documentation of one or more dose reduction techniques (e.g., Au tomated exposure control, adjustment of the mA and/or kV according to patient size, use of iterative reconstruction technique) 2010 [employer]- All Rights Reserved Reading location - IP/workstation name: [email or web address]
[2019-02-16 16:00] LABS: APPEARANCE,URINE TURBID; BILIRUBIN,URINE NEGATIVE (NEGATIVE); GLUCOSE, URINE NEGATIVE (NEGATIVE); KETONES,URINE TRACE mg/dL (NEGATIVE); LEUKOCYTE ESTERASE,URINE MODERATE (NEGATIVE); NITRITE,URINE POSITIVE (NEGATIVE); PROTEIN,URINE 100 mg/dL (NEGATIVE); URINE SPECIFIC GRAVITY 1.021; UROBILINOGEN,URINE NEGATIVE mg/dL (<2.0)
[2019-02-16 16:17] LABS: ADD MANUAL MICROSCOPIC YES; COLOR,URINE YELLOW; WBC,URINE 50-100 /HPF
[2019-02-16 16:18] LABS: BACTERIA,URINE 2+ /HPF
[2019-02-16 16:19] LABS: AMORPHOUS SEDIMENT,UR 1+
[2019-02-16] MEDS ORDERED: CEPHALEXIN 500 MG CAPSULE PO ONE (16:23)
[2019-02-16 17:04] VITALS: BP 110/66
== END 2019-02-16 17:05 | disposition home or self-care (01) ==
LOC: ER 11:37
DX: N39.0 Urinary tract infection, site not specified (principal); N20.0 Calculus of kidney; R10.11 Right upper quadrant pain; D72.829 Elevated white blood cell count, unspecified; R10.9 Unspecified abdominal pain; R11.2 Nausea with vomiting, unspecified; Z85.07 Personal history of malignant neoplasm of pancreas; Z98.890 Other specified postprocedural states; I25.10 Atherosclerotic heart disease of native coronary artery without angina pectoris
CPT/HCPCS: 99284; 96361; 96374; 96375; 36415; 87086; 82550; 83690; 85025; 87088; 80053; 81001; 87186; 74177; A9270; J1170; J2405; J7030

== ENCOUNTER 2019-03-04 03:36 | Emergency (ER) | payer MEDICARE ==
[2019-03-04] MEDS ORDERED: HYDROMORPHONE HCL INJ/PF 2 MG/ML AMPULE IV ONE ×3 (04:30→11:04)
[2019-03-04] MEDS ORDERED: NORMAL SALINE 1000 ML 1,000 ML IV ONE (04:30)
[2019-03-04] MEDS ORDERED: ONDANSETRON HCL INJ/PF 4 MG/2 ML SDV IV ONE ×2 (04:30→06:42)
--- NOTE | 2019-03-04 04:44 | ER Document Report ---
ED GI/ - General TRAVEL OUTSIDE OF THE [place] IN LAST 30 DAYS: No <NYLA LONDON - Last Filed: 03/04/19 08:39> <BOURGEOISCELESTINA Karli - Last Filed: 03/04/19 09:57> - General Chief Complaint: Possible Kidney Stone Stated Complaint: FLANK PAIN Time Seen by Provider: 03/04/19 04:21 Primary Care Provider: KHUSHI ROSARIO PA-C [Primary Care Provider] - Follow up as needed Notes: Patient is a 69-year-old male that comes to the emergency department for chief complaint of sharp pain in his right flank that radiates around to his right abdomen. Symptoms started at about 10:30 PM tonight. He has vomited multiple times. He denies fever/chills. He does have a history of kidney stones. He also has a history of bladder cancer status post prostate and bladder removal, he has a urostomy bag in place with a conduit. Patient states that he was seen in the past week by Dr. Morley, his urologist in [place], he did have a stone in the conduit that he was seen here for recently, no additional interventions were performed at that time. He completed antibiotics not long ago as well (Keflex). (NYLA LONDON) - Related Data Allergies/Adverse Reactions: codeine [Codeine] Allergy (Severe, Verified 03/04/19 03:37) Shortness of Breath PICKLES Allergy (Uncoded 03/04/19 03:37) SEVERE VOMITING Past Medical History - General Information source: Patient - Social History Smoking Status: Never Smoker Frequency of alcohol use: None Drug Abuse: None Lives with: Family Family History: Reviewed & Not Pertinent - Past Medical History Cardiac Medical History: Reports: Hx Coronary Artery Disease Denies: Hx Heart Attack, Hx Hypertension Pulmonary Medical History: Denies: Hx Asthma, Hx Bronchitis, Hx COPD, Hx Pneumonia Neurological Medical History: Denies: Hx Cerebrovascular Accident, Hx Seizures Renal/ Medical History: Denies: Hx Peritoneal Dialysis Musculoskeletal Medical History: Denies Hx Arthritis Past Surgical History: Reports: Hx Cardiac Surgery - 3 bypasses, Hx Orthopedic Surgery - right rotator cuff - Immunizations Hx Diphtheria, Pertussis, Tetanus Vaccination: No <NYLA LONDON - Last Filed: 03/04/19 08:39> Review of Systems - Review of Systems Constitutional: No symptoms reported EENT: No symptoms reported Cardiovascular: No symptoms reported Respiratory: No symptoms reported Gastrointestinal: See HPI Genitourinary: See HPI Male Genitourinary: No symptoms reported Musculoskeletal: No symptoms reported Skin: No symptoms reported Hematologic/Lymphatic: No symptoms reported Neurological/Psychological: No symptoms reported <NYLA LONDON - Last Filed: 03/04/19 08:39> Physical Exam <NYLA LONDON - Last Filed: 03/04/19 08:39> - Vital signs Vitals: Temp Pulse Resp BP Pulse Ox 97.7 F 60 16 119/73 93 03/04/19 03:38 03/04/19 03:38 03/04/19 03:38 03/04/19 03:38 03/04/19 03:38 - Notes Notes: GENERAL: Patient appears uncomfortable and is shifting restlessly HEAD: Normocephalic, atraumatic. EYES: Pupils equal, round, and reactive to light. Extraocular movements intact. ENT: Oral mucosa moist, tongue midline. Oropharynx unremarkable. Airway patent. LUNGS: Clear to auscultation bilaterally, no wheezes, rales, or rhonchi. No respiratory distress. HEART: Regular rate and rhythm. No murmur ABDOMEN: Minimal generalized tenderness in the right side of the abdomen, nonspecific, no guarding. Urostomy bag in place in the right lower abdomen without noted abnormality. GENITOURINARY: Deferred EXTREMITIES: Moves all 4 extremities spontaneously. No edema, normal radial and dorsalis pedis pulses bilaterally. No cyanosis. BACK: Right-sided CVA tenderness. Otherwise unremarkable back exam. NEUROLOGICAL: Alert and oriented x3. Normal speech. Cranial nerves II through XII grossly intact. SKIN: Warm, dry, normal turgor. No rashes or lesions noted. (NYLA LONDON) Course - Laboratory Result Diagrams: 03/04/19 05:18 03/04/19 05:18 <NYLA LONDON - Last Filed: 03/04/19 08:39> - Laboratory Result Diagrams: 03/04/19 05:18 03/04/19 05:18 - Diagnostic Test Radiology reviewed: Image reviewed, Reports reviewed <CELESTINA BOURGEOIS - Last Filed: 03/04/19 09:57> - Re-evaluation Re-evalutation: Initially patient appears uncomfortable. He has right-sided CVA tenderness and right-sided abdominal tenderness. There is no severe tenderness or guarding. He is not vomiting currently. His vital signs are unremarkable. No fever. CBC shows mild leukocytosis with elevation of neutrophils but no bandemia. Chemistry shows creatinine of 1.5, no significant change from prior. Urinalysis appears to show infection, however this is taken from the bag and this is very nonspecific. There was a very significant delay in obtaining the CAT scan and report because of a problem with IT. Reevaluated patient, he is improved after pain medication but his pain is starting to come back, remedicated. CAT scan showing severe right hydronephrosis and hydroureter, 5 mm stone sitting near but not in the conduit, nonspecific findings with no acute findings otherwise. 03/04/19 Called and spoke with Dr. Morales, urologist at [facility] container crane operator for Dr. Morley. She is recommends that if patient continues to have severe symptoms that he needs to have a percutaneous drain placed. This needs to be performed by interventional radiology. If we cannot perform this patient can be transferred. I discussed with patient. Initially patient was stating he wanted to go home, then he started having additional pain, now he states he does not feel he is going to do well at home and he will prefer to have the procedure performed. 03/04/19 08:30 I have spoken with interventional radiology container crane operator, [place]. He spoke to Radiologist, the facility where the procedure is done is not available at the time, Radiology is also concerned the stone is not causing the obstruction and there could be a conduit problem, and Urology is not here to be following. He recommends transfer of the patient. (NYLA LONDON) 03/04/19 08:56 Assumed care of patient from [facility]. [facility] attempted to get IR to remove stone here-- however service is unavailable. Patient still with pain and requiring multiple doses of pain meds. [facility] has already spoken with Dr. Morales at [facility]. Will recall the transfer center and set up/confirm transfer for further management for this patient. 03/04/19 09:15 Received return page from [facility]. Spoke with Dr. Ely Royal, hospitalist. she agrees with the plan for transfer. She is aware that we do not have urology coverage and IR is not available today. She is aware that the patient is required several doses of pain medicine pain keeps continuing to come back. She is aware of patient's white count, vital signs, creatinine. Rounded on patient and updated about plan. He agrees and feels most comfortable going to [facility] as that is where his urologist who did his urostomy is. We will await bed assignment and transfer patient. Impression: Kidney stone, intractable pain from kidney stone. Bladder cancer patient status post bladder resection with urostomy. Patient will be transferred to [place] for further management by urology. Patient agrees with the plan. EMTALA form was filled out and cosigned by Dr. Rojas. (CELESTINA BOURGEOIS) - Vital Signs Vital signs: Temp Pulse Resp BP Pulse Ox 97.7 F 56 L 16 105/68 93 03/04/19 07:18 03/04/19 07:18 03/04/19 07:18 03/04/19 07:18 03/04/19 07:18 - Laboratory Laboratory results interpreted by me: 03/04/19 03/04/19 03/04/19 05:18 05:18 05:25 WBC 10.7 H RDW 14.2 H Lymph % (Auto) 8.2 L Absolute Neuts (auto) 8.9 H Seg Neutrophils % 82.8 H Creatinine 1.54 H Est GFR ( Amer) 54 L Est GFR (MDRD) Non-Af 45 L Urine Protein >=500 H Urine Blood SMALL H Urine Nitrite POSITIVE H Ur Leukocyte Esterase MODERATE H Discharge <NYLA LONDON - Last Filed: 03/04/19 08:39> <CELESTINA BOURGEOIS - Last Filed: 03/04/19 09:57> - Discharge Clinical Impression: Intractable pain, Kidney stone Vomiting Qualifiers: Vomiting type: unspecified Vomiting Intractability: non-intractable Nausea presence: with nausea Qualified Code(s): R11.2 - Nausea with vomiting, unspecified Hydronephrosis Qualifiers: Hydronephrosis type: other Qualified Code(s): N13.39 - Other hydronephrosis Disposition: [facility] Referrals: KHUSHI ROSARIO PA-C [Primary Care Provider] - Follow up as needed
[2019-03-04 05:28] LABS: ABSOLUTE EOSINOPHILS # (AUTO) 0.1 10^3/uL (0.0-0.6); ABSOLUTE LYMPHOCYTES (AUTO) 0.9 10^3/uL (0.5-4.7); ABSOLUTE MONOCYTES (AUTO) 0.8 10^3/uL (0.1-1.4); ABSOLUTE NEUT (AUTO) 8.9 10^3/uL (1.7-8.2); BASOPHILS % (AUTO) 0.4 % (0-2); EOSINOPHILS % (AUTO) 0.9 % (0-6); HEMATOCRIT 41.8 % (37.9-51.0); LYMPHOCYTES % (AUTO) 8.2 % (13-45); MEAN CORPUSCULAR HEMOGLOBIN 29.1 pg (27.0-33.4); MEAN CORPUSCULAR HGB CONC 33.4 g/dL (32.0-36.0); MEAN CORPUSCULAR VOLUME 87 fl (80-97); MONOCYTES % (AUTO) 7.7 % (3-13); PLATELET COUNT 220 10^3/uL (150-450); RED CELL DISTRIBUTION WIDTH 14.2 % (11.5-14.0); SEGMENTED NEUTROPHILS % (AUTO) 82.8 % (42-78); TOTAL CELLS COUNTED % (AUTO) 100 %; WHITE BLOOD COUNT 10.7 10^3/uL (4.0-10.5)
[2019-03-04 05:50] LABS: ALBUMIN 4.1 g/dL (3.5-5.0); ALKALINE PHOSPHATASE 66 U/L (38-126); ANION GAP 11 (5-19); ASPARTATE AMINO TRANSFERASE 25 U/L (17-59); BILIRUBIN,DIRECT 0.2 mg/dL (0.0-0.4); BILIRUBIN,TOTAL 0.4 mg/dL (0.2-1.3); BLOOD UREA NITROGEN 19 mg/dL (7-20); CALCIUM 9.4 mg/dL (8.4-10.2); CARBON DIOXIDE 25 mmol/L (22-30); CHLORIDE 106 mmol/L (98-107); GLUCOSE 98 mg/dL (75-110); POTASSIUM 4.1 mmol/L (3.6-5.0); TOTAL PROTEIN 6.8 g/dL (6.3-8.2)
[2019-03-04 05:56] LABS: APPEARANCE,URINE TURBID; BILIRUBIN,URINE NEGATIVE (NEGATIVE); COLOR,URINE AMBER; GLUCOSE, URINE NEGATIVE (NEGATIVE); KETONES,URINE NEGATIVE (NEGATIVE); LEUKOCYTE ESTERASE,URINE MODERATE (NEGATIVE); NITRITE,URINE POSITIVE (NEGATIVE); PROTEIN,URINE >=500 mg/dL (NEGATIVE); TRIPLE PHOSPHATE CRYSTAL,URINE MANY /HPF; UROBILINOGEN,URINE NEGATIVE mg/dL (<2.0)
--- NOTE | 2019-03-04 06:52 | RADIOLOGY REPORT (SQ) ---
EXAM DESCRIPTION: CT ABDOMEN PELVIS WITHOUT IV CONTRAST COMPLETED DATE/TME: 03/04/2019 04:30 CLINICAL HISTORY: right flank and abd pain, vomiting COMPARISON: 02/16/2019 TECHNIQUE: CT of the abdomen and pelvis obtained without IV contrast. Suboptimal evaluation of the solid organs and vasculature due to lack of IV contrast DLP: 423 mGycm FINDINGS: Lung Bases: Minimal bilateral dependent atelectasis. Coronary artery atherosclerosis. Prior median sternotomy. Bones: Mild changes of the spine. Abdomen: Liver: The liver has normal size and density. Gallbladder: No calcified gallstones. Spleen, Pancreas, and Adrenal Glands: The spleen, pancreas, and adrenal glands are unremarkable. Kidneys: Severe right hydronephrosis and hydroureter again identified. No left-sided hydronephrosis. 5 mm calcific density in the dependent portion of the ileal conduit is stable. Right perinephric fat stranding. Vasculature: Endoluminal stent graft repair of abdominal aortic aneurysm with residual aneurysm sac diameter of 4.6 cm. Aortoiliac atherosclerosis. IVC is unremarkable. Stomach: The stomach and duodenum have normal course. Other: No free intraperitoneal air. No free fluid or lymphadenopathy. Pelvis: Bladder: Prior cystoprostatectomy. Bowel: No dilated loops of large or small bowel. Right anterior ileal conduit. Scattered diverticula of the colon. Appendix: Normal appendix. Pelvis: Prior cystoprostatectomy IMPRESSION: 1. Severe right hydroureter and hydronephrosis post cystoprostatectomy. This is stable in appearance. 5 mm calcific density in the dependent portion of the ileal conduit is stable and not near the anastomosis. 2. Stent graft repair of abdominal aortic aneurysm. 2. Diverticulosis without evidence of acute diverticulitis. This exam was performed according to our departmental dose-optimization program, which includes automated exposure control, adjustment of the mA and/or kV according to patient size and/or use of iterative reconstruction technique.
[2019-03-04 11:47] VITALS: BP 100/67
== END 2019-03-04 11:42 | disposition short-term general hospital (02) ==
LOC: ER 03:36
DX: N20.0 Calculus of kidney (principal); N13.39 Other hydronephrosis; R10.9 Unspecified abdominal pain; R11.2 Nausea with vomiting, unspecified; Z88.6 Allergy status to analgesic agent; Z87.442 Personal history of urinary calculi; Z85.46 Personal history of malignant neoplasm of prostate; Z85.51 Personal history of malignant neoplasm of bladder; Z95.1 Presence of aortocoronary bypass graft
CPT/HCPCS: 96376; 99284; 96361; 96374; 96375; 36415; 87086; 85025; 87088; 80053; 81001; 87186; 74176; J1170; J2405; J7030

== ENCOUNTER → 2019-10-23 | Outpatient (CLI) | payer MEDICARE ==
--- NOTE | 2019-10-23 14:32 | RADIOLOGY REPORT (SQ) ---
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 EXAM PARAMETERS: NUMBER OF VIEWS: Two views. TECHNIQUE: PA and lateral views of the chest were obtained. RADIATION DOSE: NA LIMITATIONS: None. FINDINGS: LUNGS AND PLEURA: No consolidation, pleural effusion or pneumothorax. MEDIASTINUM AND HILAR STRUCTURES: No mediastinal or hilar contour abnormality. HEART AND VASCULAR STRUCTURES: The cardiac silhouette and pulmonary vasculature are within normal marcial its. BONES: No acute findings. HARDWARE: Status post median sternotomy and CABG and endovascular repair of an abdominal aortic aneur ysm. OTHER: No other finding. IMPRESSION: No acute cardiopulmonary process. TECHNICAL DOCUMENTATION: JOB ID: [id number] 2010 [employer]- All Rights Reserved Reading location - IP/workstation name: [email or web address]
== END ==
LOC: RAD 13:22
PROVIDERS: ATTEND Internal Medicine Hematology & Oncology
DX: C61 Malignant neoplasm of prostate (principal); C67.9 Malignant neoplasm of bladder, unspecified
CPT/HCPCS: 71046

== ENCOUNTER → 2020-01-16 | Outpatient (CLI) | payer MEDICARE ==
--- NOTE | 2020-01-16 15:34 | RADIOLOGY REPORT (SQ) ---
EXAM DESCRIPTION: VENOUS UNILATERAL LOWER IMAGES COMPLETED DATE/TIME: 01/16/2020 1:52 pm REASON FOR STUDY: LLE PAIN M79.605 PAIN IN LEFT LEG COMPARISON: None. TECHNIQUE: Dynamic and static cutler scale and color images acquired of the left leg venous system. Se lected spectral images acquired with additional compression and augmentation maneuvers. The contralat eral common femoral vein and saphenofemoral junction were also imaged. Images stored on PACS. LIMITATIONS: None. FINDINGS: COMMON FEMORAL: Normal phasicity, compression and augmentation. No visualized echogenic ma terial on cutler scale. No defects on color images. FEMORAL: Normal compression and augmentation. No visualized echogenic material on cutler scale. No defe cts on color images. POPLITEAL: Normal compression, augmentation. No visualized echogenic material on cutler scale. No defec ts on color images. CALF VESSELS: Normal compression, augmentation. No visualized echogenic material on cutler scale. No de fects on color images. GSV and SSV: Normal compression, augmentation. No visualized echogenic material on cutler scale. No def ects on color images. ANY DEEP VENOUS INSUFFICIENCY: Not evaluated. ANY EVIDENCE OF POPLITEAL CYST: No. OTHER: No other significant finding. CONTRALATERAL COMMON FEMORAL VEIN AND SAPHENOFEMORAL JUNCTION: Normal phasicity, compression and augmentation. No visualized echogenic material on cutler scale. No de fects on color images. IMPRESSION: NO EVIDENCE DVT OR SVT IN THE LEFT LEG. TECHNICAL DOCUMENTATION: JOB ID: [id number] 2010 [employer]- All Rights Reserved Reading location - IP/workstation name: [email or web address]
== END ==
LOC: RAD 12:29
PROVIDERS: ATTEND Internal Medicine Hematology & Oncology
DX: M79.605 Pain in left leg (principal)
CPT/HCPCS: 93971